=== PATIENT | female | born 1990 | race Caucasian/White ===

== ENCOUNTER 2025-03-29 15:40 | Emergency (ER) | payer OTHER, SELFPAY ==
--- NOTE | ~2025-03-29 | XR_ITS ---
EXAMINATION: XR chest 2V, 03/29/2025 15:55 CDT HISTORY: SOB/chest tightness COMPARISON: No comparisons available. Technique: 2 views obtained. Findings: The lungs are clear, no effusion. No pneumothorax. Heart is normal size. Mediastinal and hilar contours are within normal limits. Bony thorax no acute abnormality. Impression: No acute cardiopulmonary abnormality. Reviewed, dictated and finalized at location P. Impression: No acute cardiopulmonary abnormality.
[2025-03-29 15:40] VITALS: BP 135/95; PULSE 114; RESP 20; TEMP 36.7; O2SAT 100
--- OUTSIDE RECORDS SUMMARY | 2025-03-29 15:45 | XMS_ITS | Clinical Summary ---
Author Organization [facility] Address [address] [place] [address] Care Team Providers Care Software Systems Architect Name Role Phone Unavailable Primary Care Provider Unavailabl e Source Comments [facility],non-owned Affiliates and Associated Physician Practices is amultiple site organization consisting of ambulatory clinics and hospital sitesin [place], [place], [place] and [place]. This disclosure is being madepursuant to the Care Everywhere program and may not contain all information available regarding this patient. Last updated 18.[facility] Allergies No known active allergies Medications * Be aware that medications may not be up to date on this document. Alwaysverify current medications with the patient. desogestrel-ethi nyl estradiol (ENSKYCE) 0.15-30 MG-MCG tablet Take 1 tablet by mouth once daily Active multivitamin daily (THERAGRAN) tablet Take 1 tablet by mouth daily with food Active lidocaine visc 2%-diphenhydrami ne 2.5mg/ml-alum&mg hydroxide 400/400 oral susp 1:1:1 suspensionIndica tions:Acute pharyngitis, unspecified etiology 15 mL every 6 hours as needed Swish and Gargle and then spit out Q 6 hours as needed for sore throat 120 mL 09/20/2017 Active Active Problems No known active problems Family History Medical History Relation Name Comments Diabetes - Type 2 Father Relation Name Status Comments Father Social History Tobacco Use Types Packs/Day Years Used Date Smoking Tobacco: Never Smokeless Tobacco: Never Alcohol Use Standard Drinks/Week Comments Yes 0 (1 standard drink = 0.6 oz pur e alcohol) occasionally Comments No Sex and Gender Information Value Date Recorded Sex Assigned at Not on file Legal Sex Female 11:47 AM CDT Gender Identity Not on file Sexual Orientation Not on file Last Filed Vital Signs Vital Sign Reading Time Taken Comments Blood Pressure 119/83 02/14/2023 5:01 PM CDT Pulse 60 02/14/2023 5:01 PM CDT Temperature 36.3 C (97.3 F) 02/14/2023 5:01 PM CDT Respiratory Rate 16 02/14/2023 5:01 PM CDT Oxygen Saturation 99% 02/14/2023 5:01 PM CDT Inhaled Oxygen Concentration - - Weight 68 kg (150 lb) 02/14/2023 12:56 PM CDT Height 160 cm (5' 3) 02/14/2023 12:56 PM CDT Body Mass Index 26.57 02/14/2023 12:56 PM CDT Plan of Treatment Health Maintenance Due Date Last Done Comments HIV SCREENING 12/14/2007 HEPATITIS C SCREENING 12/09/2010 DTAP/TDAP/TD VACCINES (1 - Tdap) 12/14/2011 HEPATITIS B VACCINE (1 of 3 - 19+ 3-dose series) 12/14/2011 PAP SMEAR 2013 HPV VACCINE (1 - 3-dose SCDM series) 12/14/2019 DEPRESSION SCREENING 06/25/2024 COVID-19 VACCINE (3 - 2024-2 6 season) 2025 02/03/2021, 01/13/2021 INFLUENZA VACCINE (#1) 2025 ZOSTER VACCINE (1 of 2) 2042 HIB VACCINE Aged Out No longer eligi ble based on patient's age to complete this topic MENINGOCOCCAL (Group B) VACCINE SHARED DECISION-MAKING Aged Out No longer eligible based on patient's age to complete this topic MENINGOCOCCAL GROUPS A/C/Y/W VACCINE Aged Out No longer eligible b ased on patient's age to complete this topic PNEUMOCOCCAL VACCINE Aged Out No long er eligible based on patient's age to complete this topic [facility] Address: [id number] [facility] [address]
--- OUTSIDE RECORDS SUMMARY | 2025-03-29 15:46 | XMS_ITS | Clinical Summary ---
Author Organization [facility] Address [address] [place] [address] Care Team Providers Care Pigeon Fancier Name Role Phone Unavailable Primary Care Provider Unavailabl e Allergies No known active allergies Medications multivitamin-min erals (VITAMINS AND MINERALS) tablet Take 1 Tablet by mouth. 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 Gender Identity Not on file Sexual Orientation Not on file Last Filed Vital Signs Vital Sign Reading Time Taken Comments Blood Pressure 109/68 07/14/2023 11:23 AM GENERATOR SWITCHBOARD OPERATOR Pulse 91 07/14/2023 11:23 AM GENERATOR SWITCHBOARD OPERATOR Temperature 37.2 C (98.9 F) 07/14/2023 11:23 AM GENERATOR SWITCHBOARD OPERATOR Respiratory Rate 20 07/14/2023 11:23 AM GENERATOR SWITCHBOARD OPERATOR Oxygen Saturation 97% 07/14/2023 11:23 AM GENERATOR SWITCHBOARD OPERATOR Inhaled Oxygen Concentration - - Weight 68 kg (150 lb) 07/14/2023 11:23 AM GENERATOR SWITCHBOARD OPERATOR Height 160 cm (5' 3) 07/14/2023 11:23 AM GENERATOR SWITCHBOARD OPERATOR Body Mass Index 26.57 07/14/2023 11:23 AM GENERATOR SWITCHBOARD OPERATOR Plan of Treatment Health Maintenance Due Date Last Done Comments HPV/Cotest (21-29) 2013 DTAP/TDAP/TD VACCINES (7 - T d or Tdap) 06/04/2016 06/04/2006, 11/27/1997, 08/19/1994, Additional history exists CERVICAL CANCER SCREENING 2022 HPV/Cotest (30-65) 2022 PAP SMEAR 2022 INFLUENZA VACCINE (#1) 2025 HPV VACCINES Completed 09/23/2009, 04/25, 02/01/2009 HEPATITIS B VACCINES Completed 11/12/2014, 11/19/1993, 01/12/1993, Additional history exists Insurance [facility] PPO [facility] HMO POS
--- OUTSIDE RECORDS SUMMARY | 2025-03-29 15:46 | XMS_ITS | Data Portability ---
Author Organization [facility]- Address # [address] [place] [address] Assessment No assessment recorded. Plan of Treatment Reminders Order Date Submit Date Provider Last Modified By Organization Details Last Modified Time Details Appointments None record ed. Lab None record ed. Referral None record ed. Procedures None record ed. Surgeries None record ed. Imaging None record ed. Medication Orders None record ed. Patient TargetsNo targets recorded. Patient InstructionsNo instructions recorded. Reason for Referral None Reported. Results Created Date Observation Date Name Description Value Unit Range Abnormal Flag Note LastModifiedBy Organization Detail LastModifiedTime 03/31/20 11 04/03/2011 cultu re, urine culture, urine, routine abnormal cultu re, urine , routi ne micro numbe r: [id number] test statu s: final speci men sourc e: urine speci men quali ty: adequ ate resul t: great er than 100,0 00 cfu/m L of staph yloco ccus sapro phyti cus the clini [facility] stand ards insti tute (M100 guide lines ), does not advis e routi ne susce ptibi lity testi ng of urine isola jone of S.sap rophy ticus becau se infec tions respo nd to urina ry rafi ntrat ions of agent s commo nly used to treat acute , uncom plica chavez UTI such nitro furan toin, trime thopr im-pino lfame thoxa zole or A fluor oquin olone . Not Available [facility] [address] , [place], [address], 04/03/2011 17:00:10 Result Notes None recorded. Medical Equipment None Reported. Vitals None Recorded Social History None recorded. Functional Status None recorded. Mental Status None recorded. Family History Nothing Reported. Medical History No medical history recorded. Gynecological HistoryNo gynecological history recorded. Obstetrics History GPAL:G 0 P 0 0 0 0 Immunizations Vaccine Type Date Status Note Provider Nam e and Address Organization Details Recorded Time DTP-Hib 4 completed Dominique [place] null, [place] [facility], 04/04/2012 11:04:04 MMR 8 completed Domin[place] [facility], 04/04/2012 11:04:04 OPV, trivalent 5 completed [place] [facility], 04/04/2012 11:04:04 DTP-Hib 5 completed [place] [facility], 04/04/2012 11:04:04 DTP 8 completed Dominique Marjorie[place]ayo[place] [facility], 04/04/2012 11:04:04 Hep B, unspecified formulation 3 completed Domin[place] [facility], 04/04/2012 11:04:04 OPV, trivalent 4 completed [place] [facility], 04/04/2012 11:04:04 Hep B, unspecified formulation 4 completed Domin[place] [facility], 04/04/2012 11:04:05 OPV, trivalent 6 completed [place] [facility], 04/04/2012 11:04:05 DTP-Hib 3 completed [place] [facility], 04/04/2012 11:04:05 OPV, trivalent 3 completed [place] [facility], 04/04/2012 11:04:05 Hep B, unspecified formulation 3 completed [place] [facility], 04/04/2012 11:04:05 MMR 4 completed [place] [facility], 04/04/2012 11:04:05 DTP-Hib 3 completed [place] [facility], 04/04/2012 11:04:05 Hep A, unspecified formulation 6 completed [place] [facility], 04/04/2012 11:05:24 meningococcal ACWY, unspecified formulation 7 completed [place] [facility], 04/04/2012 11:05:24 Tdap 6 completed [place] [facility], 04/04/2012 11:05:24 Hep A, unspecified formulation 7 completed [place] [facility], 04/04/2012 11:05:24 HPV, unspecified formulation 9 completed [place] [facility], 04/04/2012 11:05:51 HPV, unspecified formulation 9 completed [place] [facility], 04/04/2012 11:05:51 HPV, unspecified formulation 0 completed [place] [facility], 04/04/2012 11:05:51 Past Encounters Encounter ID Performer Location Encounter Start Date Encounter Closed Date Diagnosis/Indication Diagnosis SNOMED-CT Code Diagnosis ICD10 Code Diagnosis IMO Codes Diagnosis Note [id number] Izabela Kendrick MD [facility]ED[facility] [address] [address] 03/31/2011 13:01:37 04/04/2011 11:39:07 Health Concerns Section Related Observation LastModified by Organization Detai ls LastModified Time None Recorded Concern Status LastModified by Organization Details LastModified Time None Recorded Advance Directives Directive None Recorded Payers Insurance Date Sequence Insurance Name Policy Number Policy Thurman Covered Member ID Thurman Member ID Guarantor Name 02/07/2014 1 [facility] [place] [id number] Cathy Napoles [id number] Cathy Napoles OBGyn Episode No OBEpisode recorded.
--- OUTSIDE RECORDS SUMMARY | 2025-03-29 15:46 | XMS_ITS | Encounter Summary ---
Author Organization [facility] Healthcare Address [address] [place] [address] Care Team Providers Care It Operations Specialist Name Role Phone Yoselin Reyes MD Unavailable Betty Vega MD Primary Care Provider Encounter Details Date Type Department Care Team (Latest Contact Info) Description 03/16/2025 Results Follow-Up [facility] Medical Group Primary Care at [facility] [address] [address] Nuzhat Urbano NP [address] [place] [address] Magnesium, Thyroid Function King, Comprehensive metabolic panel, Additional followed-up results: 3 Social History Tobacco Use Types Packs/Day Years Used Date Smoking Tobacco: Never Smokeless Tobacco: Never Alcohol Use Standard Drinks/Week Comments Yes 0 (1 standard drink = 0.6 oz pur e alcohol) PHQ-2 Answer Date Recorded PHQ-2 Total Score 0 12/01/2024 Comments No Sex and Gender Information Value Date Recorded Sex Assigned at Not on file Legal Sex Female 11:28 PM CATALOGING ASSISTANT Gender Identity Not on file Sexual Orientation Not on file 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 No signs of anemia or infection. Your metabolic panel showed normal electrolytes, liver and kidney function. Your thyroid panel was normal. Your magnesium is normal. documented in this encounter Plan of Treatment Not on file documented as of this encounter Visit Diagnoses Not on filedocumented in this encounter Care Teams It Operations Specialist Relationship Specialty Start Date End Date Betty Vega MD [address] [address] PCP - General Internal Medicine 12/27/23 Yoselin Reyes MD [address] [place] [address] [facility] Ob[facility] Gyne[facility] 11/27/19 documented as of this encounter
--- OUTSIDE RECORDS SUMMARY | 2025-03-29 15:46 | XMS_ITS | Data Portability ---
Author Organization [facility] Address [address] [place] [address] Assessment No assessment recorded. Plan of Treatment [...] instructions recorded. Reason for Referral None Reported. Problems No Known Problems Medical Equipment None Reported. Allergies No known drug allergies Medications Name Sig Start Date Stop Date Status Note LastModified by Organization Details LastModified Time penicillin V potassium 250 mg tablet 02/07 completed Not Available Not Available Not Available silver sulfadiazine 1 % topical cream 02/07 completed Not Available Not Available Not Available benzonatate 200 mg capsule 02/07 completed Not Available Not Available Not Available prednisone 20 mg tablet 02/07 completed Not Available Not Available Not Available penicillin V potassium 500 mg tablet 02/07 completed Not Available Not Available Not Available metronidazol e 500 mg tablet active Not Available Not Available Not Available acetaminophe n 300 mg-codeine 30 mg tablet 02/07 completed Not Available Not Available Not Available Microgestin FE 07/14 (28) 1 mg-20 mcg (21)/75 mg (7) tablet active Not Available Not Available N ot Available hydrocodone 7.5 mg-acetamino phen 325 mg tablet 02/07 completed Not Available Not Available Not Available cephalexin 500 mg capsule Take 1 capsule every 8 hours by oral route for 10 days. 02/07 completed Not Available Not Available Not Available fluticasone propionate 50 mcg/actuatio n nasal spray,suspen dahlia 02/07 completed Not Available Not Available Not Available Ortho-Cyclen (28) 0.25 mg-35 mcg tablet active Not Available Not Available Not Available hydrocodone 5 mg-acetamino phen 300 mg tablet 02/07 completed Not Available Not Available Not Available Vitals Date Recorded Body height Body weight Body mass index (BMI) Systolic And Diastolic Provider Name and Address Organization Details Last Updated DateTime 02/08/2016 160.02 cm 21269.116 54 g 25.2 kg/m2 104/66 mm[Hg] Rosamaria Clay MA [facility] 02/08/2016 11:56:29 Date Recorded Body height Body mass index (BMI) Body weight Systolic And Diastolic Provider Name and Address Organization Details Last Updated DateTime 02/12/2015 160.02 cm 25.9 kg/m2 24967.835 543 g 102/72 mm[Hg] Ama Ferrari MA [facility] 02/12/2015 15:53:35 Social History None recorded. Functional Status None recorded. Mental Status None recorded. Family History Relationship Description Onset Age of this Age Resolved Age Notes LastModified by Organization Details LastModified Time Father Diabetes mellitus [email or web address] Not available 01/23 11:56:29 Medical History Condition Response Coronary Artery Disease N Other N High Blood Pressure N Atrial Fibrillation N Thyroid Problems N Kidney or Bladder Problems N GI Problems N Depression N COPD N Blood Clots N Skin Problems N Anemia N Heart Attack (HI) N Anxiety Disorder N Diabetes N Muscle, Joint, or Bone Problems N Seizures/Epilepsy N Acid Reflux (GERD) N Cancer N Stroke N Asthma N Allergies N High Cholesterol N Hepatitis N Liver Disease N Headaches N Osteoporosis N Heart Failure N Gynecological HistoryNo gynecological history recorded. Obstetrics History GPAL:G 0 P 0 0 0 0 Immunizations Vaccine Type Date Status Note Provider Nam e and Address Organization Details Recorded Time Hep A, adult 02/08/2016 completed Not Available [facility] 07/12/2019 02:30:51 Hep B, adult 11/12/2014 completed Not Available [facility] 07/12/2019 02:50:25 Past Encounters Encounter ID Performer Location Encounter Start Date Encounter Closed Date Diagnosis/Indication Diagnosis SNOMED-CT Code Diagnosis ICD10 Code Diagnosis IMO Codes Diagnosis Note [id number] Cristino Rueda MD [facility] [address] [place] [address] 11/12/2014 12:03:53 11/12/2014 13:34:31 Active or passive immunization [id number] Cristino Rueda MD [facility] [address] [place] [address] 02/12/2015 15:27:35 02/15/2015 09:37:17 Adult health examination [id number] Deejay Cordoba PA-C [facility] [address] [place] [address] 02/08/2016 11:19:52 02/08/2016 12:21:37 Adult health examination 589077534 Z00.00 Health Concerns Section Related Observation LastModified by Organization Detai ls LastModified Time None Recorded Concern Status LastModified by Organization Details LastModified Time None Recorded Advance Directives Directive None Recorded Payers Insurance Date Sequence Insurance Name Policy Number Policy Thurman Covered Member ID Thurman Member ID Guarantor Name 07/24/2016 1 [facility] Jahaira Napoles [id number] Jahaira Napoles Notes Date Note Type Note Provider Name and Address Organization Details Recorded Time 02/12/2015 text/html ROS as noted in the HPI sports physical Deejay Cordoba PA-C Attn: Accounting,[address], [place], [address], [facility] 02/12/2015 16:24:39 02/08/2016 text/html ROS as noted in the HPI needs hep a vaccine and sports phys. Deejay Cordoba PA-C Attn: Accounting,[address] [facility], [place], [address], [facility] 02/08/2016 12:07:19 OBGyn Episode No OBEpisode recorded.
--- OUTSIDE RECORDS SUMMARY | 2025-03-29 15:46 | XMS_ITS | Clinical Summary ---
Author Organization [facility] Address [address] [place] [address] Care Team Providers Care Cissp Name Role Phone Yoselin Reyes MD Unavailable Betty Vega MD Primary Care Provider Allergies No known active allergies Medications multivit,calc,min s/iron/folic (ONE-A-DAY WOMENS FORMULA ORAL) Take by mouth daily. Active cyanocobalamin (Vitamin B-12) 1,000 mcg tabletIndications :Prevention of Vitamin B12 Deficiency Take 1 tablet (1,000 mcg total) by mouth daily Active methylphenidate ER (CONCERTA) 36 mg CR tabletIndications :Attention-Defici t Hyperactivity Disorder Take 1 tablet (36 mg total) by mouth every morning Active BIOTIN ORAL Take by mouth daily. 03/13/20 25 Discontinu ed(Therapy completed) methylphenidate ER (CONCERTA) 27 mg CR tablet Take 1 tablet (27 mg total) by mouth every morning 03/13/20 25 Discontinu ed(Alterna te therapy) Active Problems Problem Noted Date Diagnosed Date Sinus tachycardia 03/13/2025 Assessment & Plan (03/13/2025 11:01 AM CDT): New problem. Sinus tachycardia likely due to increased methylphenidate dose. Heart rate elevated to 150 bpm, now 108 bpm at rest. Symptoms include dizziness and fatigue. Differential includes dehydration, stress, anxiety, electrolyte imbalance, and anemia. Risks include dizziness and discomfort. Benefits of dose reduction include potential resolution without additional medication. - Decrease methylphenidate dose - Check thyroid function tests. - Check magnesium level. - Check electrolytes and complete blood count. - Consider Holter monitor if symptoms persist after dose reduction. - Refer to psychiatry group for medication management due to expensive cost with current psychiatry group Attention deficit hyperactiv ity disorder (ADHD), combined type 12/01/2024 Assessment & Plan (03/13/2025 11:02 AM CDT): Chronic, stable. ADHD managed with methylphenidate, recently increased to 36 mg. Current symptoms suggest adverse effects from dose increase. She prefers psychiatrist for medication management. - Decrease methylphenidate dose to 27 mg. - Refer to psychiatry group for medication management. - We did discuss transferring her medication management to our practice, however, until she would need to be on a stable regimen. Assessment & Plan (12/01/2024 3:59 PM CDT): Chronic, stable. Continue current regimen: methylphenidate ER 27 mg daily Follows with Psychiatry She is potentially interested in transferring her ADD care to tx once she is stabilized on a regimen d/t high cost of psychiatric treatment. Discussed that she would need to be on a stable regimen with good control of her symptoms for that. Class 1 obesity due to exces s calories without serious comorbidity with body mass index (BMI) of 30.0 to 30.9 in adult 11/26/2023 Assessment & Plan (11/26/2023 3:51 PM CDT): BMI is elevated on today's visit. Counseled on importance of healthy diet with conscientious caloric intake and consistent exercise regimen for goal of weight loss. She is wondering if there is something wrong with her thyroid given her activity levels and maintained weight. Check thyroid studies today. Encounter for annual physical exam 11/23/2023 Assessment & Plan (12/01/2024 3:59 PM CDT): Reviewed health care maintenance issues - healthy diet with fruits, vegetables, lean meats and fish; consistent exercise, smoking status, alcohol use, immunizations, emotional/mental health, sleep, and safety issues. I reviewed the list of medical problems and medication list. Annual labs ordered as appropriate. Orders: Comprehensive metabolic panel; Future CBC with auto differential; Future Lipid panel; Future Thyroid Function [place]; Future Bilirubin, total and direct; Future Assessment & Plan (11/23/2023 1:17 PM CDT): Reviewed health care maintenance issues - healthy diet with fruits, vegetables, lean meats and fish; consistent exercise, smoking status, alcohol use, immunizations, emotional/mental health, sleep, and safety issues. I reviewed the list of medical problems and medication list. Annual labs ordered as appropriate. TMJ dysfunction 05/03/2021 Assessment & Plan (05/03/2021 4:39 PM WHARF TENDER HELPER): Patient reporting for the last couple months she has had pain when talking and chewing. She has noted popping of the jaw as well. She states over the last 2 weeks has had increasing pain with movement of the jaw. She has ear pain and headaches as well. On exam she has some noted crepitus of the TMJ more on the left than right. She has full ROM of joint and able to open and close easily. She has point tenderness at the joint as well. This began after using an oral facial toning device. Patient has since stopped. Have discussed patient symptoms with Dr. Olivarez and he agrees with plan for NSAIDs and muscle relaxer at this time. Patient was also instructed to see her dentist for evaluation and xray imaging. She will follow up in 2 weeks or sooner if needed. Atypical squamous cells of u ndetermined significance on cytologic smear of cervix (ASC-US) 11/07/2018 Overview (08/26/2020): ASCUS 11/07/2018, HR HPV negative followed by negative colposcopy, Dr. Reyes. Vitamin B12 deficiency 01/04/2018 Assessment & Plan (12/01/2024 3:59 PM CDT): Chronic, stable. Cont B12 supplements. Recheck level Orders: Vitamin B12; Future Assessment & Plan (11/26/2023 3:50 PM CDT): Diagnosed with vitamin B12 deficiency in the setting of fatigue by her previous provider. She is currently on [id number] supplements. Recheck levels today. Assessment & Plan (08/26/2020 12:07 PM WHARF TENDER HELPER): In the past we evaluated complaints of fatigue and found her B12 level to be in a low normal range. She is taking B12 but wonders what the appropriate dose would be. We recommended 1000 mcg per day which is what we recommended previously. We had ordered follow-up B12 levels, but she never had them drawn. She does not want to pursue any lab work at this time. We will see her back in six months. Assessment & Plan (02/07/2018 9:52 AM CDT): She was complaining of fatigue, so we checked a B12 level and TSH. The B12 was in a low normal range where it is not accurate. We advise that she start taking B12 supplement, and she has noticed a difference in her energy level. We will check a follow-up B12 in about six months. Resolved Problems Problem Noted Date Diagnosed Date Resolved Date Shortness of breath 05/03/2021 12/02/19 25 Assessment & Plan (05/03/2021 4:32 PM WHARF TENDER HELPER): Patient is reporting feeling as though she is short of breath and that there had been some tightness in her throat over the last week. She went last week to get covid tested based on symptoms and it was negative. On exam patient oxygen saturation was normal and lungs were clear. No signs of struggling to breath visualized. She had no obvious pharyngeal abnormality or obstruction. She was able to swallow on exam without issue. She denies any trouble swallowing or feeling as though things are sticking in her throat. Based on symptoms we will do CXR to r/o any acute cardiopulmonary abnormality. We will do labs to look for any anemia, leukocytosis, or electrolyte disturbance. She was instructed to go to ER with worsening or persistent symptoms. Overweight 04/25/2020 12/01/2024 Assessment & Plan (09/05/2020 12:15 PM CDT): She is discouraged about her weight. She has never been this heavy before. She can not seem to get the weight off despite the fairly calorie restricted diet including carbohydrates ([id number] per day) and working out regularly. We suggested that she look into an organized program such as weight watchers. Follow-up in six months. Dysuria 02/01/2018 02/07/2019 Overview (02/07/2019): Treated empirically with nitrofuantoin. Assessment & Plan (02/07/2018 9:51 AM CDT): About four or five days ago, she developed symptoms of urinary tract infection. She has had this before perhaps 4 or 5 times in her life. There is no hematuria. She has no vaginal discharge. We will treat empirically with nitrofurantoin, risks of medication discussed including potential interference with control. She should use alternative control for this cycle. If she does not have resolution of symptoms, she should call for further evaluation, urinalysis with culture, etc. Hematoma of leg, left, subsequent encounter 11/23/2017 02/07/2019 Overview (02/07/2019): Probable minor trauma from running, resolved. Assessment & Plan (02/07/2018 9:52 AM CDT): The dimple and bruise on the lateral aspect of her left mid thigh has essentially resolved. A small amount of ecchymosis persists. She is back to running, but not as much. She is biking more. Continue to monitor. Assessment & Plan (01/14/2018 6:38 AM CDT): About two months ago, she noted the onset of some discomfort on the lateral aspect of her left thigh associated with a slight amount of bruising, dimpling in one area and swelling in another. On exam, there are small areas of superficial ecchymosis. There is a very minimal central convex deformity in the skin over the mid left lateral thigh measuring approximately 2 cm in diameter. On either side of this convexity are minimal concave deformities. She is minimally tender. Findings are more prominent when she stands. She runs five days a week. She does not recall any specific injury, either direct blow or running injury. I suspect she has torn a few fibers in the muscles or connective tissue. I suggested an ultrasound of this area for further evaluation. She wants to wait a month and see how things go. In the meantime she can apply ice, and take either Tylenol or a nonsteroidal such as Advil for any discomfort. She says the discomfort is minimal and she does not plan to take any medication. Fatigue 07/03/2014 12/01/2024 Overview (09/29/2016): Fatigue Assessment & Plan (08/26/2020 12:09 PM WHARF TENDER HELPER): She is having a little trouble with fatigue. She denies any significant constitutional or organ system specific symptoms. We previously evaluated her fatigue when she was in the office about three years ago. TSH and B12 were normal although B12 was in a low normal range. She did feel improved at that time after starting a B12 supplement. She does not want to pursue any follow-up or additional lab work at this time, but if symptoms persist, we can order labs at a later date. Assessment & Plan (02/07/2018 9:51 AM CDT): Her energy level has improved since starting a B12 supplement. She is biking more than running now. Continue active lifestyle. Assessment & Plan (01/03/2018 9:22 AM CDT): She has not been seen in about three years. When last seen, she was complaining of fatigue, and we ordered some lab testing. There is nothing on file in the old record or in the new record. She had some follow-ups scheduled, but there are no visits associated with those scheduled follow-ups. Over the past three years, she has felt reasonably well, but still has a lot of fatigue. She sleeps about 8 hours a night and she wakes up feeling tired. She denies feeling depressed or blue. She has a regular work schedule and takes interest in the [place] social and cultural life. 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 She did finish college. We will check some labs as previously planned. Incidentally noted is a CBC showing mild anemia when she was a teenager, probably from menstrual losses, otherwise there are no labs on file. Follow-up in one month to review results. Mood changes 07/03/2013 12/01/2024 Overview (08/26/2020): Trouble focusing on her work. 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 She has had trouble focusing on her job. In college she had trouble with focusing on academics. She says she just barely got through college. After graduating, she initially did well at work, but now is having the same problems. She has what sounds like an approach/avoidance problem. She sees a spread sheet and wants to do a good job, but procrastinates. She has trouble concentrating. Wonders if a medication like Adderal might help. She never took a medicine in college because her parents did not approve, but now that she is an adult she wonders if it might be the right thing for her. We discussed risks and benefits of medication treatment for what sounds like a somewhat equivocal case of attention deficit disorder. If she wants to explore this further, I would first recommend she seek out counseling opportunities, either with a professional licensed counselor or through an employee assistance program at work if it is available. She could couch the request in terms of wanting to improve her work performance. I also suggested that small incremental improvements every day using motivational techniques such as delayed gratification might be helpful in overcoming her procrastination and other work habit problems. We will see her back in six months to see how she is doing. If she decides to seek psychiatric care to pursue medical therapy, we can arrange referral in the interim. Assessment & Plan (03/05/2018 5:51 PM CDT): She still gets griggs. She thinks she is sleeping enough. She is not challenged by her job. I encouraged her to explore a bit and find activities and work that excites her. Follow-up in a year or sooner as needed. Assessment & Plan (01/03/2018 9:26 AM CDT): In the past, she has had some mood issues, but she says she is doing well now. She has no sadness. She takes interest in her life. Her demeanor is somewhat subdued, but that is probably just her personality. We will continue to monitor and provide supportive care as needed. Encounters Date Type Department Care Team Description 03/16/2025 Results Follow-Up [facility] Primary Care at [address] [phone] Nuzhat Urbano NP Magnesium, Thyroid Function [place], Comprehensive metabolic panel, Additional followed-up results: 3 03/13/2025 10:58 AM CDT - 03/13/2025 11:59 PM CDT Hospital Encounter [address] [phone] Discharge Disposition: Discharge to home or self care 03/13/2025 10:30 AM CDT Office Visit [facility] Primary Care at [address] [phone] Nuzhat Urbano NP Sinus tachycardia (Primary Dx); Attention deficit hyperactivity disorder (ADHD), combined type 03/11/2025 Telephone [facility] Primary Care at [address] [phone] Nuzhat Urbano NP from Last 3 Months Immunizations Immunization Administration Dates Next Due DTP 11/27/1997 DTP / HiB 08/19/1994,07/22/1993,04/30/1993 ,02/19/1993 HPV, Unspecified 09/23/2009,05/05/2009, 9 Hep A, Adult 02/08/2016 Hep A, Unspecified 01/11/2007,06/04/2006 Hep B Vaccine 11/12/2014 Hep B, Unspecified 11/19/1993,01/12/1993, 993 Influenza, Unspecified 03/29/2024(Deferr ed: Patient Refused),03/26/2023(Deferred: Patient Refused),03/27/2022(Deferred: Patient Refused) MMR 11/27/1997,04/22/1994 Meningococcal ACWY, Unspecified 01/11/2007 OPV 04/30/1996,08/19/1994,07/22/1993 ,02/19/1993 Tdap 11/27/2023,06/04/2006 Surgical History Surgery Date Site/Laterality Comments CERVICAL BIOPSY W/ LOOP ELECTRODE EXCISION 06/25/2016 - 06/24/2017 Pap-HSIL, Colpo- DOUGIE 2-3, LEEP - DOUGIE 2 with negative margins KELOID EXCISION 05/08/2017 Left Excision of keloid, left shoulder. CERVICAL BIOPSY 12/15/2019 Endocervical curetage/biopsy: Low grade squamous intraepithelial lesion (DOUGIE I), mild, Grzegorz Martins. PAP SMEAR WITH HPV 12/08/2020 Normal, Lyn Fatima NP. Medical History Medical History Date Comments Fatigue 07/03/2014 Fatigue Dysuria 02/01/2018 Treated empirica lly with nitrofuantoin. Hematoma of leg, left, subse quent encounter 11/23/2017 Probable minor trauma from r unning, resolved. Chicken pox 2003 Family History Medical History Relation Name Comments Diabetes type II Father Alonzo napoles Diabetes me llitus type 2; Hypertension Father Alonzo napoles Hypertension; Stroke Father Alonzo napoles Cancer Maternal Grandfather James Wong Cancer Maternal Grandmother Alem Wong Alzheimer's disease Paternal Grandfather Kd rochelle Relation Name Status Comments Father Alonzo napoles Maternal Grandfather James Wong Maternal Grandmother Alem Wong Paternal Grandfather Kd rochelle Social History Tobacco Use Types Packs/Day Years Used Date Smoking Tobacco: Never Smokeless Tobacco: Never Tobacco Cessation:Counseling Given: Not Answered Alcohol Use Standard Drinks/Week Comments Yes 0 (1 standard drink = 0.6 oz pur e alcohol) PHQ-2 Answer Date Recorded PHQ-2 Total Score 0 12/01/2024 Comments No Sex and Gender Information Value Date Recorded Sex Assigned at Not on file Legal Sex Female 11:28 PM WHARF TENDER HELPER Gender Identity Not on file Sexual Orientation Not on file 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 Not on file Not on file Not on file Obstetrics History Para Term AB IAB SAB Ectopic Multiple Livin g Live Births 1 0 0 1 0 Date Outcome GA Total Labor Labor/2nd/3rd Weight Sex Type Anes PTL Sandy A1 A5 Name Clin AB Last Filed Vital Signs Vital Sign Reading Time Taken Comments Blood Pressure 128/68 03/13/2025 10:30 AM CDT Pulse 108 03/13/2025 10:30 AM CDT Temperature 36.3 C (97.3 F) 05/03/2021 1:32 PM WHARF TENDER HELPER Respiratory Rate 19 05/03/2021 1:32 PM WHARF TENDER HELPER Oxygen Saturation 99% 12/01/2024 3:30 PM CDT Inhaled Oxygen Concentration - - Weight 64.9 kg (143 lb) 03/13/2025 10:30 AM CDT Height 160 cm (5' 3) 03/13/2025 10:30 AM CDT Body Mass Index 25.33 03/13/2025 10:30 AM CDT Plan of Treatment Health Maintenance Due Date Last Done Comments Covid-19 Vaccine ( season) 2025 02/03/2021, 01/13/2021 Influenza Vaccine (#1) 2025 Depression Screening 12/01/2025 12/01/2024, 11/26/2023, 08/26/2020, Additional history exists Regular Well Visit/Exam 18-64 12/01/2025 12/01/2024, 07/17/2024, 11/26/2023, Additional history exists Cervical Cancer Screening 07/17/20272024, 07/17/2024, 12/09/2021, Additional history exists DTaP/Tdap/Td Vaccine (8 - Td or Tdap) 11/26/2033 11/27/2023, 06/04/2006, 11/27/1997, Additional history exists HPV Vaccines Completed 09/23/2009, 04/25, 02/01/2009 Hepatitis B Screening Completed 11/12/2014 , 11/19/1993, 01/12/1993, Additional history exists Hepatitis C Screening Completed 11/26/2023 Pneumococcal vaccine <65 Aged Out No longer eligible based on patient's age to complete this topic Procedures Procedure Name Priority Date/Time Associated Diagnosis Comments EGFR Routine 03/13/2025 7:41 PM CDT Sinus tachycardia DIFFERENTIAL AUTO Routine 03/13/2025 7:4 1 PM CDT Sinus tachycardia CBC WITH AUTO DIFFERENTIAL Routine 03/13/2025 7:41 PM CDT Sinus tachycardia COMPREHENSIVE METABOLIC PANEL Routine 03/13/2025 7:41 PM CDT Sinus tachycardia THYROID FUNCTION CASCADE Routine 03/13/2025 7:41 PM CDT Sinus tachycardia MAGNESIUM Routine 03/13/2025 7:41 PM CDT Sinus tachycardia HIGH RISK HPV DNA DETECTION WITH GENOTYPING Routine 07/17/2024 1:08 PM WHARF TENDER HELPER Screening for malignant neoplasm of the cervix HEPATITIS C ANTIBODY Routine 11/26/2023 4:04 PM CDT Need for hepatitis C screening test from Last 3 Months or Most Recently Relevant to Health Maintenance Results * eGFR (03/13/2025 7:41 PM CDT) eGFR >90 >=60 mL/min/1. 73 m2 Comment: Interpretive Data Reference Interval Normal >/= 90 mL/min/1.73m2 Mildly decreased* 60 - 89 mL/min/1.73m2 Mildly to moderately decreased 45 - 59 mL/min/1.73m2 Moderately to severely decreased 30 - 44 mL/min/1.73m2 Severely decreased 15 - 29 mL/min/1.73m2 Kidney Failure < 15 mL/min/1.73m2 *Relative to young adult level Estimated glomerular filtration rate is determined by the 2020 CKD-EPI equation recommended by the National Kidney Foundation (A Unifying Approach to GFR Estimation: Recommendations of the NKF-ASK Task Force on Reassessing the Inclusion of Race in Diagnosing Kidney Disease, JASN 2020). The CKD-EPI equation should not be used for patients with unstable renal function and has not been validated in children and those over 70. Current interpretive data was last reviewed 2021. Blood 03/13/2025 7:41 PM CDT 03/13/2025 7:41 PM CDT us Nuzhat Urbano NP LAB BLOOD ORDERABLES Final Resul t [facility] [address] [place] [address] * Differential, auto (03/13/2025 7:41 PM CDT) Neutrophil abs 3.08 1.50 - 6.50 K/cumm Imm gran abs 0.01 0.00 - 0.10 K/cumm [facility] Lymphocyte abs 1.31 0.80 - 3.30 K/cumm [facility] Monocyte abs 0.25 0.20 - 0.80 K/cumm [facility] Eosinophil abs 0.22 0.00 - 0.50 K/cumm [facility] Basophil abs 0.02 0.00 - 0.10 K/cumm [facility] Neutrophil pct 63.0 % [facility] Comment: Interpretive Data Percent cell count reference ranges are not reported, since discordance with absolute values may lead to misinterpretation of CBC data. Current Interpretive Data was last revised on 2017. Imm gran pct 0.2 % [facility] Comment: Interpretive Data Percent cell count reference ranges are not reported, since discordance with absolute values may lead to misinterpretation of CBC data. Current Interpretive Data was last revised on 2017. Lymphocyte pct 26.8 % [facility] Comment: Interpretive Data Percent cell count reference ranges are not reported, since discordance with absolute values may lead to misinterpretation of CBC data. Current Interpretive Data was last revised on 2017. Monocyte pct 5.1 % [facility] Comment: Interpretive Data Percent cell count reference ranges are not reported, since discordance with absolute values may lead to misinterpretation of CBC data. Current Interpretive Data was last revised on 2017. Eosinophil pct 4.5 % [facility] Comment: Interpretive Data Percent cell count reference ranges are not reported, since discordance with absolute values may lead to misinterpretation of CBC data. Current Interpretive Data was last revised on 2017. Basophil pct 0.4 % [facility] Comment: Interpretive Data Percent cell count reference ranges are not reported, since discordance with absolute values may lead to misinterpretation of CBC data. Current Interpretive Data was last revised on 2017. Blood 03/13/2025 7:41 PM CDT 03/13/2025 7:41 PM CDT Nuzhat Yolie NETWORK ARCHITECT LAB BLOOD ORDERABLES Final Resul t Performing Organization Address City/[facility]/ZIP Co de Phone Number [facility] [address] [facility] [place] [address] * Thyroid Function [place] (03/13/2025 7:41 PM CDT) Pathologist [facility] TSH 1.61 0.30 - 4.20 mcIUnit/mL Blood 03/13/2025 7:41 PM CDT 03/13/2025 7:41 PM CDT Nuzhat Urbano NP LAB BLOOD ORDERABLES Final Resul t Performing Organization Address City/[facility] Co de Phone Number [facility] [address] [place] [address] * CBC with auto differential (03/13/2025 7:41 PM CDT) Pathologist [facility] WBC 4.89 3.80 - 9.90 K/cumm Hgb 14.4 11.9 - 15.5 g/dL [facility] Hct 41.2 35.6 - 45.5 % [facility] Plt 199 150 - 400 K/cumm [facility] MPV 9.7 9.1 - 12.3 fL [facility] RBC 4.42 3.90 - 5.20 M/cumm [facility] MCV 93.2 81.3 - 96.4 fL [facility] MCH 32.6 27.1 - 33.3 pg [facility] MCHC 35.0 32.3 - 35.7 g/dL [facility] RDW CV 11.9 11.1 - 14.9 % [facility] RDW SD 41.1 35.7 - 48.1 fL [facility] NRBC abs 0.00 0.00 - 0.01 K/cumm [facility] Blood 03/13/2025 7:41 PM CDT 03/13/2025 7:41 PM CDT Nuzhat Urbano NETWORK ARCHITECT LAB BLOOD ORDERABLES Final Resul t Performing Organization Address City/[facility]/ZIP Co de Phone Number [facility] [address] [address] Department [place] [address] * Magnesium (03/13/2025 7:41 PM CDT) [facility] Magnesium 2.0 1.4 - 2.5 mg/dL Blood 03/13/2025 7:41 PM CDT 03/13/2025 7:41 PM CDT Nuzhat Urbano NETWORK ARCHITECT LAB BLOOD ORDERABLES Final Resul t Performing Organization Address [facility] de Phone Number [facility] [address] [place] [address] * (ABNORMAL) Comprehensive metabolic panel (03/13/2025 7:41 PM CDT) [facility] Sodium 140 135 - 145 mmol/L Potassium, pl 4.4 3.3 - 4.9 mmol/L [facility] Chloride 105 97 - 110 mmol/L [facility] CO2 23 22 - 32 mmol/L [facility] Anion gap 12 2 - 15 mmol/L [facility] BUN 11 6 - 25 mg/dL [facility] Creatinine 0.58(L) 0.60 - 1.10 mg/dL [facility] Glucose 93 70 - 199 mg/dL [facility] Comment: Interpretive Data Fasting glucose >/= 126 mg/dl is diagnostic for diabetes. Fasting is defined as no caloric intake for at least 8 hours. Fasting glucose between 100 mg/dl to 125 mg/dl is diagnostic of prediabetes. In a patient with classic symptoms of hyperglycemia or hyperglycemic crisis, a random glucose >/= 200 mg/dl is diagnostic for diabetes. In the absence of unequivocal hyperglycemia, results should be confirmed by repeat testing. The classification and Diagnosis of Diabetes Diabetes Care 2021; 46: S19-S40. Current interpretive data was last revised 2022. Calcium 9.4 8.5 - 10.3 mg/dL [facility] Bilirubin, total 0.4 0.1 - 1.2 mg/dL [facility] Protein, pl 7.3 6.5 - 8.5 g/dL [facility] Albumin 4.9 3.5 - 5.0 g/dL [facility] Alk phos 45 40 - 130 Units/L [facility] ALT 17 7 - 45 Units/L [facility] AST 13 10 - 45 Units/L [facility] Blood 03/13/2025 7:41 PM CDT 03/13/2025 7:41 PM CDT Nuzhat Urbano NP LAB BLOOD ORDERABLES Final Resul t [facility] [address] Department of Laboratories [place], [place] [id number] * High Risk HPV DNA Detection with Genotyping (Molecular component) (07/17/2024 1:08 PM WHARF TENDER HELPER) HPV HR 16 Not Detected Not Detected [facility] Comment: Collection date/time has been modified to: 13:08:00. Previous collection date/time: 13:08:00. Testing performed by: [facility], [address] [place] [address]., [id number] HPV HR 18 Not Detected Not Detected [facility]Y Comment: Collection date/time has been modified to: 13:08:00. Previous collection date/time: 13:08:00. Testing performed by: [facility], [address] [place] [address]., [id number] HPV HR Non 16/18 Not Detected Not Detected [facility] MACIEL Comment: Collection date/time has been modified to: 13:08:00. Previous collection date/time: 13:08:00. Interpretive Data Nucleic acid amplification for detection of high-risk Human Papilloma virus (HPV) is performed by the Navjot Yoli 6800 HPV test. This assay specifically detects HPV-16 and HPV-18 genotypes. The following HPV genotypes are detected as high-risk HPV: HPV-31, 33, 35, ,39, 45, 51, 52, 56, 58, 59, 66, and 68. This assay has been approved by the [place] Food and Drug Administration for detection of HPV in cervical specimens collected by a physician using an endocervical brush/spatula or cervical broom and placed in the ThinPrep Pap Test PreservCyt collection containers. The performance characteristics of this test have been verified by the [facility] Molecular Infectious Disease laboratory. Correlate with separately reported cytology results, as applicable. Interpretive data last revised 22 Testing performed by: [facility], [address] [place] [address]., [id number] Endocervical 07/17/2024 1:08 PM WHARF TENDER HELPER 07/21/2024 8:29 PM WHARF TENDER HELPER Narrative GUY MACIEL - 07/25/2024 10:44 AM WHARF TENDER HELPER Clinical history and diagnosis->DX Z12.4 Testing type->Screening Last menstrual period (date if known)->07/07/24 Previous negative PAP?->Yes Yoselin Reyes MD LAB BODY FLUI DS AND STOOLS ORDERABLES Edited Result - Final [address] [place] [address] [facility] * Hepatitis C antibody Blood (11/26/2023 4:04 PM CDT) Hep C Ab Nonreactive Nonreactive Comment: Interpretive Data Nonreactive: Antibodies to HCV not detected. Does NOT exclude the possibility of recent exposure to HCV. Equivocal: Equivocal for HCV antibodies. Supplemental molecular testing will be automatically performed to determine infection status in accordance with current CDC screening recommendations. Reactive: Positive for HCV antibodies. This may represent current or past HCV infection. Supplemental molecular testing will be automatically performed to determine current infection status in accordance with current CDC screening recommendations. Interpretive data was last revised on 2019. Blood 11/26/2023 4:04 PM CDT 11/26/2023 6:15 PM CDT Betty Vega MD LAB MICROBIOLOGY - GEN ERAL ORDERABLES Edited Result - Final [facility]Y [facility] [address] [place] [address] from Last 3 Months or Most Recently Relevant to Health Maintenance Insurance [facility] CIGNA CIGNA Care Teams Cissp Relationship Specialty Start Date End Date Betty Vega MD [address] [address] PCP - General Internal Medicine 12/27/23 Yoselin Reyes MD [address] [place] [address] Business Services Administrator Obstetrics and Gynecology 11/27/19
--- NOTE | 2025-03-29 15:47 | ECG_ITS ---
Test Date: 2025-03-29 15:51:08 Measurements Intervals [place] Rate: 104 P: 76 MA: 148 QRS: 65 QRSD: 90 T: 35 QT: 338 QTc: 446 Interpretive Statements SINUS TACHYCARDIA NONSPECIFIC ST-T WAVE ABNORMALITY- INFERIOR LEADS BASELINE ARTIFACT- I, II, III, AVR, AVL, AVF, V1 BORDERLINE ECG No previous ECG available for comparison Electronically Signed On 03-29-2025 19:32:56 CDT by Shabbir Lomas D.O.
--- NOTE | 2025-03-29 15:48 | ED_ITS ---
HPI - SOB/Dyspnea General Chief Complaint: Anxiety Stated Complaint: shaky, shortness of breath, heart racing Time Seen by Provider: 03/29/25 15:47 Source: patient and family Mode of arrival: ambulatory Limitations: no limitations History of Present Illness HPI Narrative: Patient is a 34-year-old female with shakiness and bilateral hand numbness and tingling as well as shortness of breath for the past day. She had an event similar to this 2 weeks ago. Patient drank 10 beers last night and she socially drinks fairly moderate consumption. MD elicited complaint: shortness of breath Pertinent past history: other (None) Onset (ago): day(s) (1) Context: other (Patient having anxiety like symptoms and syndrome over the past day) Timing: constant Severity: moderate Exacerbating factors: nothing and other (None) Relieving factors: nothing and other (None) Known history of: other (None) Associated symptoms: carpopedal spasm (Specifically hands), sense of impending doom and lightheadedness Treatment prior to arrival: none Related Data Home oxygen amount: none Allergies Allergy/AdvReac Type Severity Reaction Status Date / Time No Known Allergies Allergy Unverified 11/24/13 00:10 Review of Systems 2 Review of Systems: All systems reviewed & are unremarkable except as noted in HPI and below Constitutional: Constitutional: Reports no additional constitutional complaints Eyes: Eyes: Reports no additional eye complaints ENT: Reports system reviewed and no additional complaints, except as documented Cardiovascular: Cardiovascular: Reports no additional cardiovascular complaints Respiratory: Respiratory: Reports no additional respiratory complaints Gastrointestinal: Gastrointestinal: Reports no additional gastrointestinal complaints Genitourinary: Genitourinary: Reports no additional female genitourinary complaints Musculoskeletal: Musculoskeletal: Reports no additional musculoskeletal complaints Integumentary/Breasts: Skin/Breast: Reports system reviewed and no additional complaints, except as docu Neurologic: Reports system reviewed and no additional complaints, except as documented Psychiatric: Psychiatric: Reports no additional psychiatric complaints Endocrine: Endocrine: Reports no additional endocrine complaints Hematologic/Lymphatic: Hematologic/Lymphatic: Reports no additional hematologic/lymphatic complaints Allergic/Immunologic: Allergic/Immunologic: Reports no additional allergic/immunologic complaints Exam 2 Const: General: healthy appearing Nutritional Appearance: well nourished Orientation/consciousness: patient oriented x3 Limitations: no limitations Other: Anxious appearing with tremors HENMT: Head: normal to inspection Ears: external ears normal F gladys/Nose/Sinus: Normal external nose present Eyes: Conjunctivae: conjunctivae normal Pupils: Equal, round and reactive pupils present EOM: EOMs intact bilaterally Neck: Neck: normal visual inspection Chest: Chest palpation & inspection: normal inspection of the chest Resp: Effort & Inspection: normal respiratory effort and not labored A uscultation: clear to auscultation bilaterally and no crackles Cardio: Rate: regular rate Rhythm: regular rhythm Heart sounds: no murmurs GI: Inspection: non-distended GI Palp: Yes Soft to palpation and No Tenderness to palpation present (GI) Auscultation: normal bowel sounds : General: Yes bladder normal to palpation Back/Spine/Pelvis: Back: no CVA tenderness Skin: General skin exam: normal color Rashes: no rashes Wounds: no wounds Neuro: General: patient oriented x3, moves all extremities and no meningeal signs Extrem: General: normal to inspection Psych: Mental Status: mental status grossly normal Affect: Anxious affect present Attitude: cooperative Course Vital Signs Vital signs: Vital Signs Temperature 36.7 C 03/29/25 15:40 Pulse Rate 114 H 03/29/25 15:40 Respiratory Rate 20 03/29/25 15:40 Blood Pressure 135/95 H 03/29/25 15:40 Pulse Oximetry 100 03/29/25 15:40 Oxygen Delivery Room Air 03/29/25 15:40 Temperature 36.7 C 03/29/25 15:40 Pulse Rate 73 03/29/25 16:16 Respiratory Rate 20 03/29/25 16:16 Blood Pressure 124/88 03/29/25 16:16 Pulse Oximetry 100 03/29/25 16:16 Oxygen Delivery Room Air 03/29/25 16:16 MDM - SOB/Dyspnea MDM Narrative Medical decision making narrative: Patient is a 34-year-old female with anxiety like components that require medical workup 1st at this time. General medical workup. We spent much time talking about anxiety and panic as well as hyperglycemia. No concern for diabetes at this exact time but the possibility exists that she needs to talk to her primary doctor at follow-up. We decided on no medication for anxiety and panic today but we did talk about some exercises that would help symptoms. She will talk to the primary about this as well. Lab Data Attestation: I reviewed the patient's lab results. 03/29/25 16:05 03/29/25 16:05 Labs: Lab Results 03/29/25 03/29/25 03/29/25 Range/Units 16:04 16:05 17:11 WBC 4.7 L (4.8-10.8) K/mm3 RBC 4.42 (4.20-5.40) M/mm3 Hgb 14.3 (12.0-15.0) g/dL Hct 41.7 (35.0-49.0) % MCV 94.3 (78.0-102.0) fL MCH 32.4 H (27.0-31.0) pg MCHC 34.3 (32-36) g/dL RDW 11.8 (11.6-14.4) % Plt Count 211 (150-420) K/mm3 MPV 9.2 (9.2-11.8) fl Immature Gran % (Auto) 0.6 H (0.0-0.0) % Neut % (Auto) 65.7 (50.0-70.0) % Lymph % (Auto) 24.7 (18.0-42.0) % [place] % (Auto) 5.1 (2.0-11.0) % Eos % (Auto) 2.8 (1.0-6.0) % Baso % (Auto) 1.1 H (0.0-1.0) % Lymph # (Auto) 1.16 (1.10-4.50) K/mm3 [place] # (Auto) 0.24 (0.10-0.90) K/mm3 Eos # (Auto) 0.13 (0.02-0.50) K/mm3 Baso # (Auto) 0.05 (0.00-0.10) K/mm3 Abs Immat Gran (auto) 0.03 H (0.00-0.00) K/mm3 Absolute Neuts (auto) 3.08 (1.70-7.20) K/mm3 Absolute Nucleated RBC 0.00 (0.00-0.00) K/mm3 Nucleated RBC % 0.0 (0-0.0) % D-Dimer 0.31 (0.19-0.50) mg/L Sodium 143 (137-145) mmol/L Potassium 3.5 (3.4-5.0) mmol/L Chloride 105 (98-107) mmol/L Carbon Dioxide 24 (22-30) mmol/L Anion Gap 14 H (4-12) mmol/L BUN 10 (7-17) mg/dL Creatinine 0.56 L (0.7-1.0) mg/dL Estim Creat Clear Calc 101 ml/min Estimated GFR > 60 (59 - ) Glucose 223 H (65-110) mg/dL POC Capillary Glucose 124 H (65-105) mg/dl Hemoglobin A1c 4.7 (<5.7) % Calculated Osmolality 302 H (285-295) mOsm/kg Calcium 10.6 H (8.4-10.2) mg/dL Total Bilirubin 0.7 (0.2-1.3) mg/dL AST 30 (14-36) U/L ALT 22 (6-35) U/L Alkaline Phosphatase 48 (38-126) U/L Troponin I < 0.012 (0.000-0.034) ng/mL NT-Pro-B Natriuret Pep 261 H (19.9-100) pg/mL Total Protein 10.0 H (6.3-8.2) g/dL Albumin 5.5 H (3.5-5.1) g/dL Urine Color Light yellow (Yellow) Urine Appearance Clear (Clear) Urine pH 7.0 (5.0-8.0) Ur Specific [place] <= 1.005 L (1.010-1.020) Urine Protein Negative (Negative) Urine Glucose (UA) 1+ H (Negative) Urine Ketones Negative (Negative) Ur Blood (Man) Negative (Negative) Urine Nitrate Negative (Negative) Urine Bilirubin Negative (Negative) Urine Urobilinogen 0.2 (0.2-1.0) mg/dL Leukocyte Esterase Rfl Negative (Negative) EVANGELINA/UL Urine Test Negative Urine Opiates Screen Negative (Negative) Urine Methadone Screen Negative (Negative) Ur Barbiturates Screen Negative (Negative) Ur Phencyclidine Scrn Negative (Negative) Ur Amphetamine Screen Negative (Negative) U Benzodiazepines Scrn Negative (Negative) Urine Cocaine Screen Negative (Negative) U Cannabinoids Screen Negative (Negative) Acetone Level Negative (Negative) Imaging Data Attestation: I personally reviewed and interpreted this imaging study as follows: Radiologist's impression: Chest x-ray shows no acute process ECG Data EKG #1: Attestation: I personally reviewed and interpreted this ECG as follows: ECG completion date: 03/29/25 ECG completion time: 16:23 EKG Interpretation: tachycardia, sinus rhythm, no ectopy, no ST changes, normal QRS, normal QT and NL axis Discharge Plan Discharge Clinical Impression: Hyperventilation, Panic disorder, Hyperglycemia Patient Disposition: Home Condition: Stable Instructions: Nondiabetic Hyperglycemia (ED), Anxiety (ED), Panic Attack (ED) Additional Instructions: Please follow-up with the primary doctor in the next week. Two concerns that need to be reviewed at follow-up are anxiety and panic as well as hyperglycemia concerns. Patient Language: Bolivian Follow-up/Referrals: UNKNOWN,DOCTOR [Non-Staff] Time of Disposition: 17:25
[2025-03-29 16:06] VITALS: O2SAT 100
[2025-03-29 16:08] LABS: Hematocrit 41.7 % (35.0-49.0); Hemoglobin 14.3 g/dL (12.0-15.0); Immature Granulocyte Percent A 0.6 % (0.0-0.0); Lymphocytes Absolute Auto 1.16 K/mm3 (1.10-4.50); Mean Corpuscular HGB Conc 34.3 g/dL (32-36); Mean Corpuscular Hemoglobin 32.4 pg (27.0-31.0); Mean Corpuscular Volume 94.3 fL (78.0-102.0); Nucleated Red Blood Cells Absolute Auto 0.00 K/mm3 (0.00-0.00); Nucleated Red Blood Cells Perc 0.0 % (0-0.0); Platelet Count Result 211 K/mm3 (150-420); Red Blood Count 4.42 M/mm3 (4.20-5.40); White Blood Count 4.7 K/mm3 (4.8-10.8)
[2025-03-29 16:10] VITALS: BP 127/93; O2SAT 100
[2025-03-29 16:11] LABS: Add Urine Microscopic? NO; Appearance Urine Clear (Clear); Glucose Urine UA 1+ (Negative); Leukocyte Esterase Ur Negative LEU/UL (Negative); Nitrate Urine Negative (Negative); Specific Grav Ur <= 1.005 (1.010-1.020)
--- OUTSIDE RECORDS SUMMARY | 2025-03-29 16:12 | XMS_ITS | Clinical Summary ---
Author Organization [facility] Address [address] [place] [address] Care Team Providers Care Office Auditor Name Role Phone Unavailable Primary Care Provider [...] on file Legal Sex Female 9:35 AM RADIO ENGINEERING TEACHER Gender Identity Not on file Sexual Orientation Not on file Last Filed Vital Signs Vital Sign Reading Time Taken Comments Blood Pressure 109/68 07/14/2023 11:23 AM RADIO ENGINEERING TEACHER Pulse 91 07/14/2023 11:23 AM RADIO ENGINEERING TEACHER Temperature 37.2 C (98.9 F) 07/14/2023 11:23 AM RADIO ENGINEERING TEACHER Respiratory Rate 20 07/14/2023 11:23 AM RADIO ENGINEERING TEACHER Oxygen Saturation 97% 07/14/2023 11:23 AM RADIO ENGINEERING TEACHER Inhaled Oxygen Concentration - - Weight 68 kg (150 lb) 07/14/2023 11:23 AM RADIO ENGINEERING TEACHER Height 160 cm (5' 3) 07/14/2023 11:23 AM RADIO ENGINEERING TEACHER Body Mass Index 26.57 07/14/2023 11:23 AM RADIO ENGINEERING TEACHER Plan of Treatment Health Maintenance Due Date Last Done Comments HPV/Cotest (21-29) 2013 DTAP/TDAP/TD VACCINES (7 - T d or Tdap) 06/04/2016 06/04/2006, 11/27/1997, 08/19/1994, Additional history exists CERVICAL CANCER SCREENING 2022 HPV/Cotest (30-65) 2022 PAP SMEAR 2022 INFLUENZA VACCINE (#1) 2025 HPV VACCINES Completed 09/23/2009, 04/25, 02/01/2009 HEPATITIS B VACCINES Completed 11/12/2014, 11/19/1993, 01/12/1993, Additional history exists Insurance [facility] PPO [facility] HMO POS
--- OUTSIDE RECORDS SUMMARY | 2025-03-29 16:12 | XMS_ITS | Clinical Summary ---
Author Organization [facility] Address [address] [place] [address] Care Team Providers Care Repairer Cylinder Heads Name Role Phone Yoselin Reyes MD Unavailable [...] interested in transferring her ADD care to md once she is stabilized on a regimen [...] differential; Future Lipid panel; Future Thyroid Function Green; Future Bilirubin, total and direct; Future Assessment [...] 05/03/2021 Assessment & Plan (05/03/2021 4:39 PM ROTARY SAW OPERATOR): Patient reporting for the last couple months [...] her previous provider. She is currently on [id number] supplements. Recheck levels today. Assessment & Plan (08/26/2020 12:07 PM ROTARY SAW OPERATOR): In the past we evaluated complaints of [...] 25 Assessment & Plan (05/03/2021 4:32 PM ROTARY SAW OPERATOR): Patient is reporting feeling as though she [...] the fairly calorie restricted diet including carbohydrates (6057-1621 per day) and working out regularly. We [...] Fatigue Assessment & Plan (08/26/2020 12:09 PM ROTARY SAW OPERATOR): She is having a little trouble with [...] work schedule and takes interest in the [place] social and cultural life. 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 for [...] Department Care Team Description 03/16/2025 Results Follow-Up [facility] Primary Care at [address] [phone] Nuzhat Urbano NP Magnesium, Thyroid Function Green, Comprehensive metabolic panel, Additional followed-up results: 3 03/13/2025 10:58 AM CDT - 03/13/2025 11:59 PM CDT Hospital Encounter [address] [id number] Discharge Disposition: Discharge to home or self care 03/13/2025 10:30 AM CDT Office Visit [facility] Medical [facility] Primary Care at [address] [phone] Nuzhat Urbano NP Sinus tachycardia (Primary Dx); Attention deficit hyperactivity disorder (ADHD), combined type 03/11/2025 Telephone [facility] Primary Care at [address] [phone] Nuzhat Urbano NP from Last 3 Months [...] on file Legal Sex Female 11:28 PM ROTARY SAW OPERATOR Gender Identity Not on file Sexual Orientation Not on file 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 Not on file Not [...] 36.3 C (97.3 F) 05/03/2021 1:32 PM ROTARY SAW OPERATOR Respiratory Rate 19 05/03/2021 1:32 PM ROTARY SAW OPERATOR Oxygen Saturation 99% 12/01/2024 3:30 PM CDT [...] DETECTION WITH GENOTYPING Routine 07/17/2024 1:08 PM ROTARY SAW OPERATOR Screening for malignant neoplasm of the cervix [...] NP LAB BLOOD ORDERABLES Final Resul t [facility] [address] Department [place] [address] * Differential, auto (03/13/2025 7:41 PM CDT) Neutrophil abs 3.08 1.50 - 6.50 K/cumm Imm gran abs 0.01 0.00 - 0.10 K/cumm [facility] Lymphocyte abs 1.31 0.80 - 3.30 K/cumm [facility] Monocyte abs 0.25 0.20 - 0.80 K/cumm [facility] Eosinophil abs 0.22 0.00 - 0.50 K/cumm [facility] Basophil abs 0.02 0.00 - 0.10 K/cumm [facility] Neutrophil pct 63.0 % [facility] Comment: Interpretive Data Percent cell count reference ranges are not reported, since discordance with absolute values may lead to misinterpretation of CBC data. Current Interpretive Data was last revised on 2017. Imm gran pct 0.2 % [facility] Comment: Interpretive Data Percent cell count reference ranges are not reported, since discordance with absolute values may lead to misinterpretation of CBC data. Current Interpretive Data was last revised on 2017. Lymphocyte pct 26.8 % [facility] Comment: Interpretive Data Percent cell count reference ranges are not reported, since discordance with absolute values may lead to misinterpretation of CBC data. Current Interpretive Data was last revised on 2017. Monocyte pct 5.1 % [facility] Comment: Interpretive Data Percent cell count reference ranges are not reported, since discordance with absolute values may lead to misinterpretation of CBC data. Current Interpretive Data was last revised on 2017. Eosinophil pct 4.5 % [facility] Comment: Interpretive Data Percent cell count reference ranges are not reported, since discordance with absolute values may lead to misinterpretation of CBC data. Current Interpretive Data was last revised on 2017. Basophil pct 0.4 % [facility] Comment: Interpretive Data Percent cell count reference ranges are not reported, since discordance with absolute values may lead to misinterpretation of CBC data. Current Interpretive Data was last revised on 2017. Blood 03/13/2025 7:41 PM CDT 03/13/2025 7:41 PM CDT Nuzhat Yolie PALEONTOLOGY TEACHER LAB BLOOD ORDERABLES Final Resul t Performing Organization Address City/[facility]/ZIP Co de Phone Number [facility] [address] [facility] [place] [address] * Thyroid Function Green (03/13/2025 7:41 PM CDT) Pathologist [facility] TSH 1.61 0.30 - 4.20 mcIUnit/mL Blood 03/13/2025 7:41 PM CDT 03/13/2025 7:41 PM CDT Nuzhat Urbano NP LAB BLOOD ORDERABLES Final Resul t Performing Organization Address City/[facility] Co de Phone Number [facility] [address] [place] [address] * CBC with auto differential (03/13/2025 7:41 PM CDT) Pathologist [facility] WBC 4.89 3.80 - 9.90 K/cumm Hgb 14.4 11.9 - 15.5 g/dL [facility] Hct 41.2 35.6 - 45.5 % [facility] Plt 199 150 - 400 K/cumm [facility] MPV 9.7 9.1 - 12.3 fL [facility] RBC 4.42 3.90 - 5.20 M/cumm [facility] MCV 93.2 81.3 - 96.4 fL [facility] MCH 32.6 27.1 - 33.3 pg [facility] MCHC 35.0 32.3 - 35.7 g/dL [facility] RDW CV 11.9 11.1 - 14.9 % [facility] RDW SD 41.1 35.7 - 48.1 fL [facility] NRBC abs 0.00 0.00 - 0.01 K/cumm [facility] Blood 03/13/2025 7:41 PM CDT 03/13/2025 7:41 PM CDT Nuzhat Urbano PALEONTOLOGY TEACHER LAB BLOOD ORDERABLES Final Resul t Performing Organization Address City/[facility]/ZIP Co de Phone Number [facility] [address] Department [place] [address] * Magnesium (03/13/2025 7:41 PM CDT) [facility] Magnesium 2.0 1.4 - 2.5 mg/dL Blood 03/13/2025 7:41 PM CDT 03/13/2025 7:41 PM CDT Nuzhat Urbano PALEONTOLOGY TEACHER LAB BLOOD ORDERABLES Final Resul t Performing Organization Address [facility] de Phone Number [facility] [address] [place] [address] * (ABNORMAL) Comprehensive metabolic panel (03/13/2025 7:41 PM CDT) [facility] Sodium 140 135 - 145 mmol/L Potassium, pl 4.4 3.3 - 4.9 mmol/L [facility] Chloride 105 97 - 110 mmol/L [facility] CO2 23 22 - 32 mmol/L [facility] Anion gap 12 2 - 15 mmol/L [facility] BUN 11 6 - 25 mg/dL [facility] Creatinine 0.58(L) 0.60 - 1.10 mg/dL [facility] Glucose 93 70 - 199 mg/dL [facility] Comment: Interpretive Data Fasting glucose >/= 126 [...] 2022. Calcium 9.4 8.5 - 10.3 mg/dL [facility] Bilirubin, total 0.4 0.1 - 1.2 mg/dL [facility] Protein, pl 7.3 6.5 - 8.5 g/dL [facility] Albumin 4.9 3.5 - 5.0 g/dL [facility] Alk phos 45 40 - 130 Units/L [facility] ALT 17 7 - 45 Units/L [facility] AST 13 10 - 45 Units/L [facility] Blood 03/13/2025 7:41 PM CDT 03/13/2025 7:41 PM CDT Nuzhat Urbano NP LAB BLOOD ORDERABLES Final Resul t [facility] [address] Department of Laboratories [place], [place] [id number] * High Risk HPV DNA Detection with Genotyping (Molecular component) (07/17/2024 1:08 PM ROTARY SAW OPERATOR) HPV HR 16 Not Detected Not Detected [facility] Comment: Collection date/time has been modified to: 13:08:00. Previous collection date/time: 13:08:00. Testing performed by: [facility], [address] [place] [address]., [id number] HPV HR 18 Not Detected Not Detected [facility] Comment: Collection date/time has been modified to: 13:08:00. Previous collection date/time: 13:08:00. Testing performed by: [facility], [address] [place] [address]., [id number] HPV HR Non 16/18 Not Detected Not [...] this test have been verified by the [facility] laboratory. Correlate with separately reported cytology results, as applicable. Interpretive data last revised 22 Testing performed by: [facility], [address] [place] [address]., [id number] Endocervical 07/17/2024 1:08 PM ROTARY SAW OPERATOR 07/21/2024 8:29 PM ROTARY SAW OPERATOR Narrative [facility] MACIEL - 07/25/2024 10:44 AM ROTARY SAW OPERATOR Clinical history and diagnosis->DX Z12.4 Testing type->Screening Last menstrual period (date if known)->07/07/24 Previous negative PAP?->Yes Yoselin Reyes MD LAB BODY FLUI DS AND STOOLS ORDERABLES Edited Result - Final [address] [address] Department [place] [address] [facility] * Hepatitis C antibody Blood (11/26/2023 4:04 [...] ERAL ORDERABLES Edited Result - Final GUY [facility] [address] Department [place] [address] from Last 3 Months or Most Recently Relevant to Health Maintenance Insurance [facility] CIGNA CIGNA Care Teams Repairer Cylinder Heads Relationship Specialty Start Date End Date Betty Vega MD [address] [address] PCP - General Internal Medicine 12/27/23 Yoselin Reyes MD [address] [place] [address] Complaint Coordinator Obstetrics and Gynecology 11/27/19
--- OUTSIDE RECORDS SUMMARY | 2025-03-29 16:12 | XMS_ITS | Encounter Summary ---
Author Organization [facility] Healthcare Address [address] [place] [address] Care Team Providers Care Superintendent Colliery Name Role Phone Yoselin Reyes MD Unavailable Betty Vega MD Primary Care Provider Encounter Details Date Type Department Care Team (Latest Contact Info) Description 03/16/2025 Results Follow-Up [facility] Medical Group Primary Care at 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
--- OUTSIDE RECORDS SUMMARY | 2025-03-29 16:12 | XMS_ITS | Clinical Summary ---
Author Organization [facility] [employer] Address [address] [place] [address] Care Team Providers Care Paper Sales Representative Name Role Phone Unavailable Primary Care Provider Unavailabl e Source Comments [facility] [employer],non-owned Affiliates and Associated Physician Practices is amultiple site organization consisting of ambulatory clinics and hospital sitesin [place], [place], [place] and [place]. This disclosure is being madepursuant to the Care Everywhere program and may not contain all information available regarding this patient. Last updated [email or web address] Allergies No known active allergies Medications * [...] patient's age to complete this topic Insurance [facility] Address: [id number] [facility] [place] [address]
[2025-03-29 16:15] VITALS: O2SAT 100
[2025-03-29 16:16] VITALS: BP 124/88; PULSE 73; RESP 20; O2SAT 100
[2025-03-29 16:16] LABS: Pregnancy On Board Control Positive
[2025-03-29 16:24] LABS: Alanine Aminotransferase 22 U/L (6-35); Albumin Level 5.5 g/dL (3.5-5.1); Alkaline Phosphatase 48 U/L (38-126); Anion Gap 14 mmol/L (4-12); Aspartate Amino Transferase 30 U/L (14-36); Bilirubin,Total 0.7 mg/dL (0.2-1.3); Blood Urea Nitrogen 10 mg/dL (7-17); Calcium 10.6 mg/dL (8.4-10.2); Carbon Dioxide 24 mmol/L (22-30); Chloride 105 mmol/L (98-107); Estimated CRCL calculation 101 ml/min; Estimated Glomerular Filt Rate > 60; Glucose 223 mg/dL (65-110); Osmolality Calculated 302 mOsm/kg (285-295); Potassium 3.5 mmol/L (3.4-5.0); Sodium 143 mmol/L (137-145); Total Protein 10.0 g/dL (6.3-8.2)
[2025-03-29 16:31] LABS: Cannabinoid Screen Urine Negative (Negative)
[2025-03-29 16:34] LABS: NT Pro B Type Natriuretic Pept 261 pg/mL (19.9-100)
[2025-03-29 16:38] LABS: Troponin I < 0.012 ng/mL (0.000-0.034)
[2025-03-29 16:43] LABS: Hemoglobin A1C 4.7 % (<5.7)
== END 2025-03-29 17:29 | disposition home or self-care (01) ==
PROVIDERS: Emergency Provider Emergency Medicine
DX: R06.4 Hyperventilation (principal); F41.0 Panic disorder [episodic paroxysmal anxiety]; R73.9 Hyperglycemia, unspecified
CPT/HCPCS: 36415; 71046; 80053; 80307; 81003; 81025; 82010; 82948; 83036; 83880; 84484; 85025; 85380; 93005; 99284